=== PATIENT | male | born 1965 | race Caucasian/White ===

== ENCOUNTER 2016-11-06 15:08 | Emergency (ER) | payer BC ==
[2016-11-06] MEDS ORDERED: Albuterol/Ipratropium 3.0-0.5 MG/3 ML Neb Soln NEB ONE (16:08)
--- NOTE | 2016-11-06 16:32 | EDM.PDOC ---
ED HPI GENERAL MEDICAL PROBLEM - General Chief Complaint: General Stated Complaint: FACE Time Seen by Provider: 11/06/16 15:15 Source of Information: Reports: Patient History Limitations: Reports: No limitations - History of Present Illness INITIAL COMMENTS - FREE TEXT/NARRATIVE: History of present illness: [51-year-old male presenting with a new onset left side cheek pressure/ paresthesia. As well as complaints of teeth feeling cold. She indicates he has had a URI for the last 2 weeks which is significantly better today. Patient does cough intermittently throughout exam.] Review of systems: As per history of present illness and below otherwise all systems reviewed and negative. Past medical history: As per history of present illness and as reviewed below otherwise noncontributory. Surgical history: As per history of present illness and as reviewed below otherwise noncontributory. Social history: No reported history of drug or alcohol abuse. Family history: As per history of present illness and as reviewed below otherwise noncontributory. Physical exam: HEENT: Atraumatic, normocephalic, pupils reactive, negative for conjunctival pallor or scleral icterus, mucous membranes moist, left TM noted to have some purulent discharge within the canal and a needy red TM, right ear with pink pearly TM with good light reflex, otherwise throat clear, neck supple, nontender , trachea midline. Lungs: Clear to auscultation with significantly decreased air movement throughout otherwise breath sounds equal bilaterally, chest nontender. Heart: S1S2, regular, negative for clicks, rubs, or JVD. Abdomen: Soft, nondistended, nontender. Negative for masses or hepatosplenomegaly. Negative for costovertebral tenderness. Pelvis: Stable nontender. Genitourinary: Deferred. Rectal: Deferred. Extremities: Atraumatic, negative for cords or calf pain. Neurovascular unremarkable. Neuro: Awake, alert, oriented. Cranial nerves II through XII unremarkable. Cerebellum unremarkable. Motor and sensory unremarkable throughout. Exam nonfocal. Other than noted above patient is with a benign assessment save this problems as noted with the ear and the slight amount of paresthesia with the left cheek. Diagnostics: [] Therapeutics: [] Impression: [Otitis media left, bronchitis ] Plan: [Medication/bronchodilator/antibiotics/Tessalon Perles] Definitive disposition and diagnosis as appropriate pending reevaluation and review of above. Left Face Pain Score (Numeric/FACES): 3 - Related Data Allergies Allergy/AdvReac Type Severity Reaction Status Date / Time hepatitis B virus vaccine Allergy Muscle Verified 07/11/16 12:43 Aches Home Meds: Home Meds Benzonatate [Tessalon Perles] 200 mg PO TID #45 cap 11/06/16 [Rx] Inhaler, Assist Devices [Space Chamber Plus] 1 each MC ASDIRECTED #1 spacer [Rx] Metoprolol Succinate 100 mg PO DAILY 11/06/16 [History] amLODIPine Besylate/Benazepril [Amlodipine-Benazepril 5-20 MG] 1 each PO DAILY 11/06/16 [History] Past Medical History Cardiovascular History: Reports: Hypertension Social & Family History - Tobacco Use Smoking Status *Q: Never Smoker - Caffeine Use Caffeine Use: Reports: Coffee, Tea - Recreational Drug Use Recreational Drug Use: No ED ROS GENERAL - Review of Systems Review Of Systems: See Below (The history of present illness) ED EXAM, GENERAL - Physical Exam Exam: See Below (See history of present illness) Course - Vital Signs Last Recorded V/S: Last Vital Signs Temp 36.9 C 11/06/16 15:28 Pulse 94 11/06/16 15:28 Resp 18 11/06/16 15:28 BP 173/94 H 11/06/16 15:28 Pulse Ox 95 11/06/16 15:28 - Orders/Labs/Meds Orders: Active Orders 24 hr Category Date Time Status RT Aerosol Therapy [RC] ASDIRECTED Care 11/06/16 16:09 Ordered Albuterol/Ipratropium [DuoNeb 3.0-0.5 MG/3 ML] Med 11/06/16 16:08 Once 3 ml NEB ONETIME ONE Departure - Departure Time of Disposition: 16:47 Disposition: Home, Self-Care 01 Condition: good Clinical Impression: Acute left otitis media, Bronchitis Clinical Impression: (Ruled Out): CHF, Congestive heart failure Forms: ED Department Discharge Additional Instructions: The following information is given to patients seen in the emergency department who are being discharged to home. This information is to outline your options for follow-up care. We provide all patients seen in our emergency department with a follow-up referral. The need for follow-up, as well as the timing and circumstances, are variable depending upon the specifics of your emergency department visit. If you don't have a primary care physician on staff, we will provide you with a referral. We always advise you to contact your personal physician following an emergency department visit to inform them of the circumstance of the visit and for follow-up with them and/or the need for any referrals to a consulting specialist. The emergency department will also refer you to a specialist when appropriate. This referral assures that you have the opportunity for follow-up care with a specialist. All of these measure are taken in an effort to provide you with optimal care, which includes your follow-up. Under all circumstances we always encourage you to contact your private physician who remains a resource for coordinating your care. When calling for follow-up care, please make the office aware that this follow-up is from your recent emergency room visit. If for any reason you are refused follow-up, please contact the [facility] Emergency Department at and asked to speak to the emergency department charge nurse. Take medication as directed Follow up with primary care provider one to 2 days Return to ED as discussed - My Orders Last 24 Hours: My Active Orders 11/06/16 16:08 Albuterol/Ipratropium [DuoNeb 3.0-0.5 MG/3 ML] 3 ml NEB ONETIME ONE 11/06/16 16:09 RT Aerosol Therapy [RC] ASDIRECTED - Assessment/Plan Last 24 Hours: My Active Orders 11/06/16 16:08 Albuterol/Ipratropium [DuoNeb 3.0-0.5 MG/3 ML] 3 ml NEB ONETIME ONE 11/06/16 16:09 RT Aerosol Therapy [RC] ASDIRECTED
[2016-11-06 18:21] VITALS: BP 141/82
== END 2016-11-06 17:21 | disposition home or self-care (01) ==
LOC: MW.ED 15:08
DX: H66.92 Otitis media, unspecified, left ear (principal); J40 Bronchitis, not specified as acute or chronic; I10 Essential (primary) hypertension; Z88.7 Allergy status to serum and vaccine; Z79.899 Other long term (current) drug therapy
CPT/HCPCS: 99283-25; 99284

== ENCOUNTER 2017-04-18 22:39 | Emergency (ER) | payer BC ==
[2017-04-18] MEDS ORDERED: methylPREDNISolone Sodium Succinate 125 MG/2 ML SDV IM ONE (22:58)
[2017-04-18] MEDS ORDERED: Indomethacin 25 MG Cap ONE (23:06)
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
[2017-04-19 03:13] VITALS: BP 132/80
[2017-04-19] MEDS ORDERED: INDOMETHACIN 75 MG PO SCH (09:00)
== END 2017-04-18 23:25 | disposition home or self-care (01) ==
LOC: MW.ED 22:39
DX: M10.9 Gout, unspecified (principal); I10 Essential (primary) hypertension; Z88.7 Allergy status to serum and vaccine
CPT/HCPCS: 96372; 99283; A9270; J2930; 99281

== ENCOUNTER 2017-06-07 11:51 | Day surgery (SDC) | payer BC ==
[~2017-06-07 11:51] MED LIST: Lactated Ringers 1,000 ML IV SCH; Lidocaine 2% 5 ML SDV ONE; Propofol 200 MG/20 ML SDV ONE; Sodium Chloride 0.9% 10 ML Syringe FLUSH PRN; Sodium Chloride 0.9% 2.5 ML Syringe FLUSH PRN; fentaNYL 100 MCG/2 ML SDV ONE
--- NOTE | 2017-06-07 13:07 | PCM.PREANE ---
Preanesthetic Assessment - Anesthesia/Transfusion/Family Hx Anesthesia History: Prior Anesthesia Without Reaction Family History of Anesthesia Reaction: No Transfusion History: No Prior Transfusion(s) - Review of Systems General: No Symptoms Pulmonary: No Symptoms Cardiovascular: No Symptoms Gastrointestinal: No Symptoms Neurological: No Symptoms Other: Reports: None - Physical Assessment NPO Status Date: 06/06/17 Height: 1.88 m Weight: 171.458 kg ASA Class: 2 Mental Status: Alert & Oriented x3 Dentition: Reports: Normal Dentition ROM/Head Extension: Full Lungs: Clear to Auscultation, Normal Respiratory Effort Cardiovascular: Regular Rate, Regular Rhythm - Allergies Allergies/Adverse Reactions: Allergies Allergy/AdvReac Type Severity Reaction Status Date / Time hepatitis B virus vaccine Allergy Muscle Verified 04/18/17 22:51 Aches - Anesthesia Plan Pre-Op Medication Ordered: None - Acknowledgements Anesthesia Type Planned: MAC Pt an Appropriate Candidate for the Planned Anesthesia: Yes Alternatives and Risks of Anesthesia Discussed w Pt/Guardian: Yes Pt/Guardian Understands and Agrees with Anesthesia Plan: Yes PreAnesthesia Questionnaire HEENT History: Reports: Other (See Below) Other HEENT History: wears glasses Cardiovascular History: Reports: Hypertension Respiratory History: Reports: None Gastrointestinal History: Reports: None Genitourinary History: Reports: None Musculoskeletal History: Reports: None Neurological History: Reports: None Psychiatric History: Endocrine/Metabolic History: Reports: Obesity/BMI 30+ Hematologic History: Reports: None Oncologic (Cancer) History: Reports: None Dermatologic History: Reports: None - Infectious Disease History Infectious Disease History: Reports: None - Past Surgical History Head Surgeries/Procedures: Reports: None GI Surgical History: Reports: Appendectomy Male Surgical History: Reports: None Musculoskeletal Surgical History: Reports: Arthroscopic Knee - SUBSTANCE USE Smoking Status *Q: Never Smoker Recreational Drug Use History: No - HOME MEDS Home Medications: Home Meds Metoprolol Succinate 100 mg PO DAILY 11/06/16 [History] amLODIPine Besylate/Benazepril [Amlodipine-Benazepril 5-20 MG] 1 each PO DAILY 11/06/16 [History] - CURRENT (IN HOUSE) MEDS Current Meds: Current Medications Lactated Ringer's (Ringers, Lactated) 1,000 mls @ 125 mls/hr IV ASDIRECTED FREDY Sodium Chloride (Saline Flush) 10 ml FLUSH ASDIRECTED PRN PRN Reason: Keep Vein Open Sodium Chloride (Saline Flush) 2.5 ml FLUSH ASDIRECTED PRN PRN Reason: Keep Vein Open Discontinued Medications Fentanyl (Sublimaze) Confirm Administered Dose 100 mcg .ROUTE .STK-MED ONE Stop: 06/07/17 09:49 Lidocaine (Xylocaine-Mpf 2%) Confirm Administered Dose 5 ml .ROUTE .STK-MED ONE Stop: 06/07/17 09:49 Propofol (Diprivan 20 Ml) Confirm Administered Dose 400 mg .ROUTE .STK-MED ONE Stop: 06/07/17 09:49
[2017-06-07] MEDS ORDERED: Midazolam 1 MG/ML 2 ML SDV ONE (13:54)
[2017-06-07] MEDS ORDERED: Propofol 200 MG/20 ML SDV ONE (14:07)
--- NOTE | 2017-06-07 14:29 | PCM.OPNOTE ---
- General Post-Op/Procedure Note Date of Surgery/Procedure: 06/07/17 Operative Procedure(s): Colonoscopy Findings: Normal colon Pre Op Diagnosis: Colonoscopy Post-Op Diagnosis: Normal colon Anesthesia Technique: MAC Primary Surgeon: Judith Mccord Condition: Good
--- NOTE | 2017-06-07 14:59 | PCM48HPAN ---
Post Anesthesia Note - EVALUATION WITHIN 48HRS OF ANESTHETIC Vital Signs in Normal Range: Yes Patient Participated in Evaluation: Yes Respiratory Function Stable: Yes Airway Patent: Yes Cardiovascular Function Stable: Yes Hydration Status Stable: Yes Pain Control Satisfactory: Yes Nausea and Vomiting Control Satisfactory: Yes Mental Status Recovered: Yes
--- NOTE | 2017-06-07 14:59 | PCM.POSTAN ---
POST ANESTHESIA ASSESSMENT - MENTAL STATUS Mental Status: Alert, Oriented - RESPIRATORY Respiratory Status: Respiratory Rate WNL, Airway Patent, O2 Saturation Stable - CARDIOVASCULAR CV Status: Pulse Rate WNL, Blood Pressure Stable - GASTROINTESTINAL GI Status: No Symptoms - POST OP HYDRATION Hydration Status: Adequate & Stable
[2017-06-07 15:09] VITALS: BP 135/82
--- NOTE | 2017-06-07 20:10 | OR ---
SURGEON: JUDITH MCCORD MD DATE OF PROCEDURE: 06/07/2017 PREOPERATIVE DIAGNOSIS: Screening colonoscopy. POSTOPERATIVE DIAGNOSIS: Screening colonoscopy. PROCEDURE PERFORMED: Screening colonoscopy. ENDOSCOPIST: Dr. Judith Mccord. ANESTHESIA: MAC. INSTRUMENT USED: Olympus colonoscope. EXTENT OF THE EXAM: To the cecum. PREPARATION: Good. LIMITATIONS: None. INDICATION FOR EXAMINATION: The patient is a 52-year-old male, who presents for first time screening colonoscopy. He and I discussed the procedure as well as expected perioperative course. We discussed the risks, including bleeding, infection, or damage to surrounding structures, including perforation. The patient verbalized understanding and wishes to proceed. PROCEDURE IN DETAIL: The patient was brought into the endoscopy suite and placed in left lateral decubitus position. A time-out was completed verifying the patient's name, age, date of , allergies, and procedure to be performed. A well lubricated colonoscope was inserted into the rectum and advanced under direct visualization to the level of cecum. The cecum was identified by both visual and anatomic landmarks. A photograph was taken of the cecal cap. I was unable to retroflex the scope within the cecum. The scope was then straightened out and fully withdrawn while examining the color, texture, anatomy, and integrity of the mucosa from the cecum to the anal canal. The findings were consistent with normal colonic mucosa. The scope was then brought into the rectum and retroflexed to allow visualization of the anal canal opening. This appeared normal and a photograph was taken. The scope was then straightened out and removed from the patient. Cecum to anus time was 7 minutes. The patient was taken to PACU in stable condition. ENDOSCOPIC DIAGNOSIS: Normal colonoscopy. RECOMMENDATION: Follow up in clinic in 10 years. RIANNA BLAKE /[id number]
== END 2017-06-07 15:43 | disposition home or self-care (01) ==
LOC: MW.SDS 11:51
PROVIDERS: ATTEND Surgery
DX: Z12.11 Encounter for screening for malignant neoplasm of colon (principal); I10 Essential (primary) hypertension; R73.03 Prediabetes; E66.9 Obesity, unspecified; Z68.42 Body mass index [BMI] 45.0-49.9, adult; Z88.7 Allergy status to serum and vaccine; Z79.899 Other long term (current) drug therapy; Z90.89 Acquired absence of other organs; Z98.890 Other specified postprocedural states
CPT/HCPCS: 45378; J2250; J3010; 00810; J2704